=== PATIENT | female | born 1970 | race Caucasian/White ===

== ENCOUNTER 2016-08-12 09:03 | Emergency (ER) | payer BC ==
[~2016-08-12] VITALS: Ht 162.6 cm; Wt 50.0 kg
[~2016-08-12 09:03] MED LIST: PRENTAB26 PO
[2016-08-12 09:19] VITALS: TEMP 36.5; Ht 162.6 cm; Wt 50.0 kg
[2016-08-12] MEDS ORDERED: MULTTAB58 PO (09:19)
[2016-08-12] MEDS ORDERED: MAGN500C PO (09:19)
--- NOTE | 2016-08-12 10:08 | DIAGNOSTIC IMAGING REPORT ---
RIGHT SHOULDER 3 VIEWS CLINICAL HISTORY: Right shoulder pain. Postreduction examination. FINDINGS: 3 views of the right shoulder are compared to study dated 05/20/2011. The skeletal structures appear osteopenic. No shoulder dislocation is seen. No acute fracture is identified. A chronic Hill-Sachs lesion is noted. This was also seen in 2011. The acromio clavicular articulation is anatomic. The overlying soft tissues are within normal limits. The imaged right lung parenchyma appears clear. IMPRESSION: 1. No acute fracture or dislocation is seen in the right shoulder. 2. A Hill-Sachs lesion is again noted. Electronically signed by: Bairon Cox M.D. 08/12/2016 10:07 AM Dictated Date/Time: 08/12/2016 10:05 AM
--- NOTE | 2016-08-12 10:20 | EMERGENCY ROOM VISIT NOTE ---
ED Visit Note First contact with patient: 09:21 CHIEF COMPLAINT: Right Shoulder injury HISTORY OF PRESENT ILLNESS: This 46-year-old female presents the ER via ALS with chief complaint of dislocated right shoulder. The patient states that she slipped on the steps and landed on her buttocks and was holding onto the railing as she started sliding and felt her shoulder pop. She had immediately onset of pain. The patient has had a dislocation in the past. The patient states that she gets very sick with any type of pain medications except for Advil. She just took 2 Advil prior to arrival. REVIEW OF SYSTEMS: 6 system review was performed and was negative unless stated otherwise in history of present illness. PMH: See chronic problem list SOCIAL HISTORY: Patient lives at home. PHYSICAL EXAM: Vital Signs: Were reviewed Reviewed nurse's notes. GENERAL: 46- year-old white female appears uncomfortable secondary to shoulder pain. MENTAL Status: Alert and oriented 3. RIGHT shoulder: The shoulder is slightly swollen and deformed on inspection. There is a palpable defect on the anterior aspect of the shoulder and the entire anterior shoulder is tender. The range of motion is markedly reduced in all directions because of the pain. There is no tenderness of the distal clavicle. EMERGENCY DEPARTMENT COURSE: The patient was evaluated. The patient did not one any pain medication. The patient was placed in the prone position with her arm extending down alongside the stretcher. The extended arm was pulled firmly and steadily at a right angle to the chest wall. After about a minute or two the shoulder was felt to reduce. Post reduction x-ray showed that the head of the humerus was back in the anatomical position. A shoulder immobilizer was placed and the patient was instructed as below. DIAGNOSTIC:RIGHT SHOULDER 3 VIEWS CLINICAL HISTORY: Right shoulder pain. Postreduction examination. FINDINGS: 3 views of the right shoulder are compared to study dated 05/20/2011. The skeletal structures appear osteopenic. No shoulder dislocation is seen. No acute fracture is identified. A chronic Hill-Sachs lesion is noted. This was also seen in 2011. The acromio clavicular articulation is anatomic. The overlying soft tissues are within normal limits. The imaged right lung parenchyma appears clear. IMPRESSION: 1. No acute fracture or dislocation is seen in the right shoulder. 2. A Hill-Sachs lesion is again noted. Electronically signed by: Bairon Cox M.D. 08/12/2016 10:07 AM The patient was informed of the findings. The patient was placed in arm sling and discharged home in stable condition. DIAGNOSIS: Right Shoulder dislocation DISCHARGE INSTRUCTIONS & TREATMENT: Rest the arm in the shoulder immobilizer until seeing the orthopedic surgeon in 4 - 5 days. Apply ice to the shoulder intermittently and frequently over the next 24 hours. Ibuprofen every 6 hours as needed for pain. Call Dr. Matamoros today for a follow-up appointment next week. Current/Historical Medications Scheduled Magnesium Oxide (Mg Supplement (Magnesium), 500 MG PO DAILY Multiple Vitamin (Multivitamin), 1 TAB PO DAILY Allergies Coded Allergies: Methylergonovine (Unverified Allergy, Severe, MUSCLES IN ENTIRE BODY CONTRACTS, 10/27/14) Sulfa Drugs (Unverified Allergy, Intermediate, RASH, 10/27/14) Phenylephrine (Unverified Allergy, Unknown, HEART RACES, 10/27/14) Vital Signs Date Time Temp Pulse Resp B/P Pulse Ox O2 Delivery O2 Flow Rate FiO2 08/12/16 09:19 36.5 56 16 94/52 100 Room Air Departure Information Referrals Kenny Kuhn M.D. (PCP) Patient Instructions My [facility]
[2016-08-12 10:27] VITALS: BP 102/70; PULSE 53; O2SAT 99
== END 2016-08-12 10:39 | disposition home or self-care (01) ==
LOC: EDBD 09:03 → C.EDA 09:05
DX: S43.014A Anterior dislocation of right humerus, initial encounter (principal); W10.9XXA Fall (on) (from) unspecified stairs and steps, initial encounter

== ENCOUNTER → 2017-06-05 | Outpatient (CLI) | payer OTHER ==
[~2017-06-05] MED LIST changes: +MAGN500C PO; +MULTTAB58 PO; -PRENTAB26 PO
--- NOTE | 2017-06-05 13:39 | DIAGNOSTIC IMAGING REPORT ---
ULTRASOUND ABDOMINAL WALL CLINICAL HISTORY: Ventral hernia. COMPARISON STUDY: No priors. FINDINGS: Real-time grayscale sonography of the abdominal wall is performed at the indicated sites of interest. There is diastases of the rectus abdominis musculature with approximately 2 cm of separation. There is a small fat-containing umbilical hernia. No hernia is identified in the right lower quadrant abdominal wall at the site of interest. IMPRESSION: 1. There is a small fat-containing umbilical hernia. 2. No hernia is identified in the right lower quadrant at the site of interest. 3. There is diastases of the rectus musculature. Electronically signed by: Bairon Cox M.D. 06/05/2017 1:38 PM Dictated Date/Time: 06/05/2017 1:36 PM
== END | disposition home or self-care (01) ==
LOC: C.ULTR 12:41
PROVIDERS: ATTEND Family Medicine
DX: K43.9 Ventral hernia without obstruction or gangrene (principal); M62.08 Separation of muscle (nontraumatic), other site